=== PATIENT | male | born 1960 | race Caucasian/White ===

== ENCOUNTER 2017-10-18 15:29 | Inpatient (IN) | payer OTHER ==
[~2017-10-18] VITALS: Ht 162.6 cm; Wt 74.1 kg
--- NOTE | ~2017-10-18 | CNG ---
[facility] [place] [address] CYTO-NONGYN REPORT PROCEDURE Name: LUPEBARNEY Room #: 362-P ADM IN M.R.#: [id number] Admission: 10/18/17 Date of : 58 Discharge: Report #: [id number] Path Case #: [id number] CYTOPATHOLOGY REPORT COLLECTION DATE: 10/27/2017 RECEIVED DATE: 10/27/2017 SUBMITTING PHYS: Dr. Elicia Leonard OTHER PHYS: Dr. Nguyen Alexander CLINICAL HISTORY: CVA, LLE weakness, New onset AFIB SPECIMEN(S) RECEIVED: A.Urine * * * * * * * * * * * * FINAL DIAGNOSIS: A. Urine: NEGATIVE FOR HIGH-GRADE UROTHELIAL CARCINOMA (NHGUC). Few urothelial cells are present. Red blood cells are present. PATHOLOGIST: Maida Brunson M.D. REPORT ELECTRONICALLY SIGNED BY: Maida Brunson M.D. DATE/TIME: 10/30/2017 13:58 * * * * * * * * * * * * GROSS PATHOLOGY: A. Urine: The specimen is submitted unfixed, labeled "Barney Figueroa". Received by the Cytology Department is five mL of clear light yellow fluid. One ThinPrep slide was prepared. (mm 10.27.2017) ART GLASS SETTER(S): NAVYA Araya([facility]) INITIAL CPT CODE(S): A; 72217 Professional services performed by [facility] at [facility] [address], [place] [address] Technical services performed by [facility] at [address] [place] [address]., [address], [place] [address]. [facility] [address] [place] [address], [facility] [address] [place], [place] [address] [place] [address] [place] [address] CYTO-NONGYN REPORT PROCEDURE Name: BARNEY FIGUEROA Room #: 362-P ADM IN M.R.#: [id number] Admission: 10/18/17 Date of : 58 Discharge: Report #: [id number] Path Case #: [id number] PHONE: [phone] DIRECTOR: Abner Davis M.D. * * * END OF REPORT * * *
--- NOTE | ~2017-10-18 | HC ---
[facility] [place] [address] CONSULTATION Name: BARNEY ANDRADE Room #: 362-P ADM IN M.R.#: [id number] Admission: 10/18/17 Attend Phys: Elicia Leonard Discharge: Date of : 58 Report #: [id number] THIS REPORT FOR: //name// CC: SHARITA physician/PCP Elciia Leonard CHIEF COMPLAINT: Hematuria. HISTORY OF PRESENT ILLNESS: The patient is being seen today at the request of Dr. Leonard for evaluation and management of hematuria. The patient is a 57-year-old gentleman who is being hospitalized with a CVA. He is on Lovenox and intermittently for the last day or two, the nurses have noticed blood in his Haq. Prior to Haq catheter placement, there was no report of hematuria. He is unable to provide any meaningful history with respect to urination. ALLERGIES: None. MEDICATIONS: No chronic medications. I do refer to the medication reconciliation sheet. He is on metoprolol, spironolactone, lisinopril, furosemide, diltiazem, Lipitor, multiple vitamin, folate, Coreg, thiamine, Lovenox subq, lorazepam, Lasix, famotidine, vitamin B12, Ambien, nitroglycerin, polyethylene glycol, hydrocodone and acetaminophen. PAST SURGICAL HISTORY: Include appendectomy. SOCIAL HISTORY: He reported previously to be a weekend drinker, although he cannot answer questions now. No smoking history. REVIEW OF SYSTEMS: He has been diagnosed with atrial fibrillation and cardiomyopathy and a recent cerebral infarct. PHYSICAL EXAMINATION: GENERAL: He is comfortable sitting in bed. VITAL SIGNS: Temperature was 119/90, pulse 61, temperature 36.4 and respirations 20. ABDOMEN: Soft without mass. He has uncircumcised phallus with no acute intrascrotal pathology. Indwelling Haq catheter is draining clear urine. LABORATORY DATA: White count 9.4 thousand, hemoglobin 16.3, hematocrit 47.3 and platelets 183,000. Sodium 138, potassium 4.0, chloride 102, CO2 27, BUN 17 and creatinine 1.1. No urine studies on the chart. No abdominal imaging. IMPRESSION: Hematuria is probably classic combination of catheter-induced and in combination with anticoagulation. PLAN: We will check renal ultrasound, urine culture and cytology. Consider cytology based on above. [address] [address] CONSULTATION Name: BARNEY ANDRADE Eloise Room #: 362-P [facility] IN M.R.#: [id number] Admission: 10/18/17 Attend Phys: Elicia Leonard Discharge: Date of : 58 Report #: [id number] I appreciate the opportunity to be involved in his care. <ELECTRONICALLY SIGNED> By: Owen Alexander MD 10/27/17 0612 1745 0349 Owen Alexander MD /nt
--- NOTE | ~2017-10-18 | 2DMMODE ---
[facility] [address] [place] [address] 2 D/M-MODE ECHOCARDIOGRAM Name: LUPEBARNEY Room #: 356-P ADM IN .R.#: [id number] Admission: 10/18/17 Attend Phys: Elicia Colmenares Discharge: Date of : 58 Date of Service: 10/19/17 0917 Report #: [id number] THIS REPORT FOR: //name// APPROVED REPORT Study performed: 10/19/2017 08:01:12 EXAM: Comprehensive 2D, Doppler, and color-flow Echocardiogram Patient Location: Bedside Room #: [facility] Status: routine BSA: 1.78 HR: 85 bpm BP: 123/69 mmHg Other Information Study Quality: Adequate Indications Atrial Fibrillation 2D Dimensions RVDd: 40.88 mm LVEF(%): 21.42 (>50%) IVSd: 12.06 (7-11mm) LVOT Diam: 21.39 (18-24mm) LVDd: 50.10 mm PWd: 11.43 (7-11mm) Ascending Ao: 34.68 (22-36mm) LVDs: 45.19 (25-40mm) Aortic Root: 31.66 mm IVC: 19.00 mm Bright's LVEF: 21.42 % Volumes Left Atrial Volume (Systole) Single Plane 4CH: 95.74 mL Single Plane 2CH: 91.42 mL LA ESV Index: 56.00 mL/m2 Aortic Valve AoV Peak Christoph.: 1.01 m/s AO Peak Gr.: 4.08 mmHg LVOT Max P.16 mmHg LVOT Max V: 0.70 m/s AV Vmax: 2.48 cm2 Mitral Valve MV Decel. Time: 133.25 ms MV E Max Christoph.: 1.04 m/s [facility] [place] [address] 2 D/M-MODE ECHOCARDIOGRAM Name: LUPEBARNEY J Room #: [facility] IN ..#: [id number] Admission: 10/18/17 Attend Phys: Elicia Colmenares Discharge: Date of : 58 Date of Service: 10/19/17 0917 Report #: [id number] Pulmonary Valve PV Peak Christoph.: 0.71 m/s PV Peak Gr.: 1.99 mmHg Tricuspid Valve TR Peak Christoph.: 2.78 m/s RAP Estimate: 5.00 mmHg TR Peak Gr.: 30.97 mmHg PA Pressure: 36.00 mmHg Left Ventricle Left ventricle is at the upper limits of normal. There is normal left ventricular wall thickness. Left ventricular systolic function is severely decreased. LVEF is 25-30%. This study is not technically sufficient to allow evaluation of the LV diastolic function due to atrial fibrillation. Right Ventricle Right ventricle is dilated. Right ventricle is mildly hypokinetic. Atria Left atrium is severely dilated. Right atrium is moderately to severely dilated. Aortic Valve The aortic valve is normal in structure. Trace aortic regurgitation. There is no aortic valvular stenosis. Mitral Valve The mitral valve is normal in structure. Mild to moderate mitral regurgitation. No evidence of mitral valve stenosis. Tricuspid Valve The tricuspid valve is normal in structure. Mild tricuspid regurgitation. PAP is estimated at 36 mmHg. Pulmonic Valve Pulmonic valve is not well visualized. Great Vessels The aortic root is normal in size. IVC is normal in size and collapses >50% with inspiration. Pericardium There is no pericardial effusion. <Conclusion> [facility] [address] [place] [address] 2 D/M-MODE ECHOCARDIOGRAM Name: BARNEY ANDRADE Room #: 356-P [facility] IN .R.#: [id number] Admission: 10/18/17 Attend Phys: Elicia Colmenares Discharge: Date of : 58 Date of Service: 10/19/17916 Report #: [id number] Left ventricular systolic function is severely decreased. EF 25-30% Both atria are severely dilated. The aortic valve is normal in structure. No aortic valvular stenosis or insufficiency. Mitral valve structurallyt normal. Mild to moderate mitral regurgitation. Mild tricuspid regurgitation. Pulmonary artery pressure is estimated at 36 mmHg. There is no pericardial effusion. <ELECTRONICALLY SIGNED> By: Jarrett De La Paz MD, [facility] 10/19/17916 6 6 Jarrett De La Paz MD, [facility] /INF
--- NOTE | ~2017-10-18 | EKG ---
[address] [address] ELECTROCARDIOGRAM REPORT Name: BARNEY ANDRADE Room #: 362-P ADM IN M.R.#: [id number] Admission: 10/18/17 Attend Phys: Elicia Leonard Discharge: Date of : 58 Report #: [id number] THIS REPORT FOR: //name// [facility] Test Date: 2017-10-30 Test Time: 09:12:09 Pat Name: BARNEY ANDRADE Department: Room: 362 P Gender: M Bag Machine Helper: Isabel CRISTINA : 1960 Requested By: Harman Thomason Order Number: [id number] MD: Jarrett De La Paz Measurements Intervals [place] Rate: 86 P: [place]: QRS: -72 QRSD: 123 T: 70 QT: 363 QTc: 434 Interpretive Statements Atrial fibrillation LAFB Compared to ECG 10/22/2017 14:51:49 Left anterior fascicular block now present Electronically Signed On 10-30-2017 17:30:20 ASSOCIATE TRAINER by Jarrett De La Paz [email or web address] <ELECTRONICALLY SIGNED> By: Jarrett De La Paz MD, [facility] 10/30/17 1730 1 1 Jarrett De La Paz MD, [facility] /EPI
--- NOTE | ~2017-10-18 | CATHLAB ---
[facility] [address] [place] [address] INVASIVE PROCEDURE REPORT Name: BARNEY ANDRADE Room #: 362-P [facility] IN ..#: [id number] Admission: 10/18/17 Attend Phys: Elicia Colmenares Discharge: Date of : 58 Date of Service: 10/26/17 1721 Report #: [id number] THIS REPORT FOR: //name// APPROVED REPORT Procedure Narrative The patient was brought urgently to the Cardiac Catheterization Laboratory and was prepped and draped in a sterile manner. The Right Groin^ was infiltrated with subcutaneous anesthesia. A PINNACLE 6FR Sheath #[id number] sheath was inserted into the RFA^. Coronary angiography was performed using coronary diagnostic catheters. The right coronary system was accessed and visualized with a JR 4 catheter. The left coronary system was accessed and visualized with a JL 5 catheter. The left ventricle was accessed and visualized with a Pigtail catheter. Left ventriculogram was performed in CHAPARRO projection. Closure device was deployed with a 6 Fr Mynx. The patient tolerated the procedure well and there were no complications associated with the procedure. There was no hematoma. Fluoro Time: 6.07 minutes Dose: 810 mGy Contrast Type and Amount: Omnipaque 120 ml Hemodynamics The right atrial mean pressure is 13 mmHg. The right ventricular pressure is 40/9 mmHg. The pulmonary artery pressure is 45/15 mmHg with a mean of 27 mmHg. The mean pulmonary capillary wedge pressure is 19 mmHg. The left ventricular pressure is 110/8 mmHg with a mean of mmHg. The left ventricular end diastolic pressure is 21 mmHg. The cardiac output using thermo method is 3.25 L/min. The cardiac index using thermo method is 1.83 L/min/m2. Conclusion #1 mildly dilated left ventricle with severe global hypokinesis EF 20% range #2 grossly normal coronary arteries and a left dominant system. No occlusive disease. #3 bilateral single renal arteries selectively injected mildly diseased #4'right heart catheterization with moderate elevation pulmonary pressures see above hemodynamics Recommendations and plan or aggressive risk factor modification aggressive diuresis. Etiology of cardiomyopathy is unknown idiopathic [facility] [address] [place] [address] INVASIVE PROCEDURE REPORT Name: BARNEY ANDRADE Room #: 362-P [facility] IN ..#: [id number] Admission: 10/18/17 Attend Phys: Elicia Colmenares Discharge: Date of : 58 Date of Service: 10/26/17 1721 Report #: [id number] versus alcohol. Transfer back to telemetry unit in guarded but stable condition. <ELECTRONICALLY SIGNED> By: Billy Arenas MD, [facility] 10/26/171720 20 1721 Billy Arenas MD, [facility] /INF
--- NOTE | ~2017-10-18 | EEG ---
[facility] [address] [place] [address] ELECTROENCEPHALOGRAM Name: BARNEY ANDRADE Room #: 362-P [facility] IN M.R.#: [id number] Admission: 10/18/17 Attend Phys: Elicia Richard Discharge: 11/01/17 Date of : 58 Report #: [id number] THIS REPORT FOR: //name// CC: SHARITA physician/PCP Elicia Leonard DATE OF SERVICE: 10/24/2017 INDICATION FOR PROCEDURE: This patient is being evaluated for altered mental status. INTERPRETATION: EEG was done by placing the electrodes by standard 10-20 system of electrode placement. Both referential and sequential montages were used for recording. Background activity on the left side is about 10 Hz and 30 microvolt, on the right side is lower amplitude. The patient appeared to be drowsy during part of this EEG and that is associated with bilateral slowing and vertex sharp waves. Photic stimulation is unremarkable. Throughout the record, no active epileptiform activity was noted. IMPRESSION: This patient's electroencephalogram demonstrates that the amplitude is somewhat lower on the right side as compared to the left side. For that clinical correlation is recommended. Otherwise, the study was mostly unremarkable. Thank you very much for this referral. <ELECTRONICALLY SIGNED> By: Robbie Hernandez MD 11/02/17 1146 1955 36 Robbie Hernandez MD /nt
--- NOTE | ~2017-10-18 | EKG ---
[address] [place] [address] ELECTROCARDIOGRAM REPORT Name: BARNEY ANDRADE Room #: 356-P ADM IN M.R.#: [id number] Admission: 10/18/17 Attend Phys: Elicia Leonard Discharge: Date of : 58 Report #: [id number] THIS REPORT FOR: //name// [facility] Test Date: 2017-10-22 Test Time: 14:51:49 Pat Name: BARNEY ANDRADE Department: Room: 356 P Gender: M Fuse Spooler: sakina : 1960 Requested By: Billy Arenas Order Number: [id number] MD: Jarrett De La Paz Measurements Intervals [place] Rate: 43 P: [place]: QRS: -86 QRSD: 119 T: 196 QT: 454 QTc: 384 Interpretive Statements Atrial fibrillation with a slow ventricular response Leftward axis Nonspecific intraventricular conduction delay T-wave abnormality, consider lateral ischemia Compared to ECG 10/19/2017 13:29:[address] and T wave abnormality is more pronounced Electronically Signed On 10-23-2017 7:40:11 SUPPLY CHAIN LOGISTICS MANAGER by Jarrett De La Paz [email or web address] <ELECTRONICALLY SIGNED> By: Jarrett De La Paz MD, [facility] 10/23/17 0740 1451 1451 Jarrett De La Paz MD, [facility] /EPI
--- NOTE | ~2017-10-18 | HC ---
[facility] [place] [address] [place] [address] CONSULTATION Name: BARNEY ANDRADE Room #: 356-P ADM IN M.R.#: [id number] Admission: 10/18/17 Attend Phys: Elicia Leonard Discharge: Date of : 58 Report #: [id number] THIS REPORT FOR: //name// CC: SHARITA physician/PCP Elicia Leonard DATE OF SERVICE: 10/19/2017 HISTORY OF PRESENT ILLNESS: This is a 57-year-old male patient who was seen by me last night and this morning. This is a combined note. This patient was admitted with nonspecific symptoms. History is difficult to get because of the language barrier but the best I can tell, this patient has symptoms on the left side. He indicates that he has trouble walking. He indicated there is predominantly because of the left-sided symptoms, although he is having some symptom in generalized fashion. He came to Emergency Room and that demonstrated the patient had a CT scan of the head. REVIEW OF SYSTEMS: Indicate that this patient is having problem with the right eye and to some extent left eye. He indicates that he has not sought any medical treatment because he cannot afford it. His CT scan is abnormal. On admission, he was found to have atrial fibrillation. He also has elevated blood sugar. This was his relevant 14-point review of system. PAST MEDICAL HISTORY: Negative for any stroke. FAMILY HISTORY: Positive for stroke. SOCIAL HISTORY: He does drink alcohol. PHYSICAL EXAMINATION: NEUROLOGICAL: The patient's examination is difficult. He is alert. He is responsive. He can follow simple command. Cognition is difficult because of the patient's language barrier. Cranial nerve examination 2 through 12 was attempted. He has pretty redness in both eyes. He says he can see with both eyes. I cannot do any further good examination. He moves all 4 extremities. He may be weak, some on the left side but difficult to tell, but he has pretty significant difficulty with ambulation. He cannot tell me the position sense is intact and his tone looks symmetrical. There is no carotid bruit. There is no meningeal sign. CARDIAC: Irregular heart but that has been found to be atrial fibrillation. RESPIRATORY: Examination does not show any respiratory difficulty. RADIOLOGICAL DATA: This patient had a CT and subsequently had an MRI that both confirmed that the patient had what looks like a large stroke. Echocardiogram demonstrates decreased ejection fraction. [address] [address] CONSULTATION Name: LUPEBARNEY J Room #: 356-P ADM IN M.R.#: [id number] Admission: 10/18/17 Attend Phys: Elicia Leonard Discharge: Date of : 58 Report #: [id number] IMPRESSION: 1. Large stroke secondary to cardiac embolization. 2. Significant lower ejection fraction and history of atrial fibrillation. 3. Ophthalmology problem, which is most likely secondary to ophthalmology cause. RECOMMENDATIONS: 1. We will do more workup including the carotid and MRA workup. 2. This patient was never an intervention candidate. 3. He had a left-sided stroke with left-sided symptom. That is very unusual. Corticospinal tracts very rarely do not cross, but that is the rare finding, but we have to assume that probably that happened in his case, but I will exclude any spine pathology also in that regard. 4. Rehabilitation consult with PT, OT. 5. This patient will need a repeat CT scan over the weekend and depending upon that and depending upon any hemorrhage there, the question of timing of anticoagulation need to be addressed in this patient. Cardiology is going to see this patient and will determine if there is any need to do ALICE to exclude any possibility of endocarditis. I need to check with Radiology to see whether the contrast was given during MRI or not or whether there is any need to do it, but this patient will need a repeat CT scan in the next 2-3 days to determine whether we can start the anticoagulations on third day after this stroke or whether we need to wait for a week or even longer to prevent the stroke from becoming hemorrhagic. Thank you very much for this referral and I will ask Dr. Sanchez to follow up this patient with you until Monday. More than 50 minutes of time was spent taking care of this patient today and yesterday and more than 50% of the time was spent counseling this patient and coordinating his care. Thank you very much for this referral. <ELECTRONICALLY SIGNED> By: Robbie Hernandez MD 10/20/17 1041 1549 0033 Robbie Hernandez MD /nt
--- NOTE | ~2017-10-18 | EKG ---
[address] [place] [address] ELECTROCARDIOGRAM REPORT Name: BARNEY ANDRADE Room #: 356-P ADM IN M.R.#: [id number] Admission: 10/18/17 Attend Phys: Elicia Leonard Discharge: Date of : 58 Report #: [id number] THIS REPORT FOR: //name// [facility] ED Test Date: 2017-10-18 Test Time: 15:37:30 Pat Name: BARNEY ANDRADE Department: Room: 356 Gender: M Community Relations Advisor: ISRAEL : 1960 Requested By: Nguyen Villa Order Number: [id number] MD: Jarrett De La Paz Measurements Intervals [place] Rate: 102 P: [place]: QRS: -79 QRSD: 121 T: 59 QT: 328 QTc: 428 Interpretive Statements Atrial fibrillation Leftward axis Nonspecific intraventricular conduction delay repolarization abnormality No previous ECG available for comparison Electronically Signed On 10-18-2017 17:23:10 SPEEDER OPERATOR by Jarrett De La Paz [email or web address] <ELECTRONICALLY SIGNED> By: Jarrett De La Paz MD, [facility] 10/18/17 1723 1537 1537 Jarrett De La Paz MD, [facility] /EPI
--- NOTE | ~2017-10-18 | EKG ---
[address] [address] ELECTROCARDIOGRAM REPORT Name: BARNEY ANDRADE Room #: 356-P ADM IN M.R.#: [id number] Admission: 10/18/17 Attend Phys: Elicia Leonard Discharge: Date of : 58 Report #: [id number] THIS REPORT FOR: //name// [facility] Test Date: 2017-10-19 Test Time: 13:29:39 Pat Name: BARNEY ANDRADE Department: Room: 356 P Gender: M Decontamination Worker: Isabel CRISTINA : 1960 Requested By: Sirisha Landa Order Number: [id number] MD: Jarrett De La Paz Measurements Intervals [place] Rate: 82 P: [place]: QRS: -87 QRSD: 121 T: 37 QT: 386 QTc: 451 Interpretive Statements Atrial fibrillation Leftward axis Nonspecific intraventricular conduction delay Compared to ECG 10/18/2017 15:37:30 No significant change was found Electronically Signed On 10-19-2017 17:02:53 OPERATOR LIGHTS by Jarrett De La Paz [email or web address] <ELECTRONICALLY SIGNED> By: Jarrett De La Paz MD, [facility] 10/19/17 1702 1329 132 Jarrett De La Paz MD, [facility] /EPI
--- NOTE | ~2017-10-18 | HC ---
[facility] [place] [address] CONSULTATION Name: BARNEY ANDRADE Room #: 362-P ADM IN M.R.#: [id number] Admission: 10/18/17 Attend Phys: Elicia Leonard Discharge: Date of : 58 Report #: [id number] THIS REPORT FOR: //name// CC: SHARITA physician/PCP Elicia Leonard DATE OF SERVICE: 10/19/2017 HISTORY OF PRESENT ILLNESS: The patient is a 57-year-old male admitted with left-sided weakness and inability to ambulate. He was noted to have an acute recent infarct mid left temporal lobe on MRI. He is being monitored regarding atrial fibrillation. He feels that his weakness is improving since he came into the hospital. He was unable to walk and complained of weakness in his legs. Denied any visual changes other than his typical cataracts. No swallowing difficulties. We are seeing him in rehabilitation medicine consultation. PAST MEDICAL HISTORY: Includes prior appendix surgery. MEDICATIONS: Please see the full medication listing. HABITS: Nonsmoker. Alcohol use on the weekends. FAMILY HISTORY: Mother had a CVA. ALLERGIES: No known drug allergies. SOCIAL HISTORY: Lives in a trailer house alone, 3 steps in, did not utilize gait aids, works in construction, [employer] and [employer] He notes that he has a friend that he could stay in the friend's apartment on one floor. The friend works during the day. REVIEW OF SYSTEMS: Did not offer any current complaints of chest pain, shortness of breath or abdominal discomfort. PHYSICAL EXAMINATION: GENERAL: A 57-year-old male in no obvious distress. He has broken Palestinian, but seems to be able to follow basic commands without difficulty. VITAL SIGNS: Temperature 98.2, pulse 83, respirations 18, blood pressure 117/84. He has some chronic corneal changes and notes a history of cataracts. EOMs otherwise appeared full. Facies, he may have a slight depressed left nasolabial fold. EXTREMITIES: He has functional range of motion of both upper and lower extremities. I would grade his strength, probably a grade 4/5 both upper and lower extremities. DTRs were 1. Had some difficulty assessing sensation with the language barrier. Coordination was reasonably intact. Functionally, he was noted to have some lean to the left while sitting and was actually max assist [facility] [address] [place] [address] CONSULTATION Name: BARNEY ANDRADE Room #: 362-P [facility] IN M.R.#: [id number] Admission: 10/18/17 Attend Phys: Elicia Leonard Discharge: Date of : 58 Report #: [id number] with sit to stand. He can only take two steps max assist. ASSESSMENT: A 57-year-old right-handed male with the following problem list: 1. Acute recent infarct left medial temporal lobe. 2. Gait instability with inability to ambulate. 3. Decreased coordination and balance. 4. Functional mobility and ADL deficits. I am uncertain if he has the skin cognition or speech deficits. He could communicate his basic wants that needs me. 5. History of atrial fibrillation. PLAN: Therapy evaluations are underway. We will be glad to follow regarding his rehab therapy needs as he further medically stabilizes. <ELECTRONICALLY SIGNED> By: Owen Carrillo MD 10/24/17 1553 [id number] 1839 Owen Carrillo MD /PMT
[2017-10-18 15:32] VITALS: BP 144/103
[2017-10-18 16:02] LABS: ABSOLUTE NEUTROPHILS 6.3 thou/uL (1.4-8.2); BASOPHILS 1.1 % (0.0-2.0); EOSINOPHILS 0.6 % (0.0-3.0); HEMATOCRIT 46.1 % (42.0-52.0); HEMOGLOBIN 15.4 gm/dL (14.0-18.0); LYMPHOCYTES 17.4 % (24.0-44.0); MCH 30.4 pg (26.0-34.0); MCHC 33.5 g/dL (28.0-37.0); MCV 90.8 fL (80.0-100.0); MONOCYTES 7.1 % (1.0-8.0); PLATELET COUNT 159 thou/uL (150-400); POLYS 73.8 % (36.0-66.0); RBC 5.08 mil/uL (4.50-6.00); RDW 14.6 % (10.5-14.5); WBC 8.6 thou/uL (4.0-11.0)
[2017-10-18 16:27] LABS: ANION GAP 9 mmol/L (7-16); BUN 24 mg/dL (7-18); CHLORIDE 102 mmol/L (98-107); CO2 28 mmol/L (21-32); GLUCOSE 163 mg/dL (74-106); POTASSIUM 3.9 mmol/L (3.5-5.1); SODIUM 139 mmol/L (136-145)
[2017-10-18 16:38] LABS: TROPONIN-I < 0.04 ng/mL (<0.06)
[2017-10-18 16:58] LABS: LARGE PLATELETS FEW; PLATELET ESTIMATE NORMAL
[2017-10-18 17:40] LABS: CHOLESTEROL 192 mg/dL (<200); HDL CHOLESTEROL 71 mg/dL (>40); LDL CHOLESTEROL 91 mg/dL (<100); TC:HDL 2.7 Ratio (Not establshd); TRIGLYCERIDE 150 mg/dL (<150); VLDL 30 mg/dL (<40)
[2017-10-18 17:42] LABS: SERUM ASSESSMENT Clear
[2017-10-18 17:46] VITALS: BP 143/98
[2017-10-18 18:20] VITALS: BP 135/72
[2017-10-18 20:50] VITALS: BP 121/87
[2017-10-19 00:22] VITALS: BP 119/72
[2017-10-19 04:30] VITALS: BP 123/69
[2017-10-19 08:30] VITALS: BP 117/84
[2017-10-19 09:08] LABS: HIV ANTIBODY Non Reactive (Non Reactive)
[2017-10-19 13:17] VITALS: BP 120/72
[2017-10-19 19:20] VITALS: BP 127/82
[2017-10-19 19:50] VITALS: BP 127/82
[2017-10-20 04:43] VITALS: BP 102/71
[2017-10-20 07:41] VITALS: BP 124/89
[2017-10-20 12:39] VITALS: BP 127/88
[2017-10-20 15:25] VITALS: BP 110/77
[2017-10-20 20:00] VITALS: BP 105/70
[2017-10-21 04:00] VITALS: BP 115/80
[2017-10-21 07:45] VITALS: BP 104/75
[2017-10-21 09:07] LABS: CREATININE 1.2 mg/dL (0.7-1.3); POTASSIUM 4.5 mmol/L (3.5-5.1)
[2017-10-21 11:21] VITALS: BP 95/68
[2017-10-21 15:24] VITALS: BP 96/59
[2017-10-21 20:40] VITALS: BP 99/80
[2017-10-22 03:40] VITALS: BP 104/82
[2017-10-22 08:58] VITALS: BP 112/66
[2017-10-22 11:00] VITALS: BP 96/59
[2017-10-22 17:18] VITALS: BP 106/63
[2017-10-22 19:06] VITALS: BP 107/68
[2017-10-23] MEDS ORDERED: CELEXA40 MG PO (03:23)
[2017-10-23 03:48] VITALS: BP 102/77
[2017-10-23 06:20] LABS: ABSOLUTE NEUTROPHILS 5.3 thou/uL (1.4-8.2); BASOPHILS 1.8 % (0.0-2.0); EOSINOPHILS 1.5 % (0.0-3.0); HEMATOCRIT 50.3 % (42.0-52.0); HEMOGLOBIN 16.8 gm/dL (14.0-18.0); LYMPHOCYTES 25.3 % (24.0-44.0); MCH 30.9 pg (26.0-34.0); MCHC 33.4 g/dL (28.0-37.0); MCV 92.5 fL (80.0-100.0); MONOCYTES 8.9 % (1.0-8.0); PLATELET COUNT 169 thou/uL (150-400); POLYS 62.5 % (36.0-66.0); RBC 5.44 mil/uL (4.50-6.00); RDW 14.4 % (10.5-14.5); WBC 8.5 thou/uL (4.0-11.0)
[2017-10-23 06:25] LABS: CREATININE 1.1 mg/dL (0.7-1.3); MAGNESIUM 2.3 mg/dL (1.8-2.4); POTASSIUM 4.6 mmol/L (3.5-5.1)
[2017-10-23 09:15] VITALS: BP 128/92
[2017-10-23 14:05] VITALS: BP 135/90
[2017-10-23 16:00] VITALS: BP 137/89
[2017-10-23 20:45] LABS: BE(vivo) 1.4 mmol/L (-2 to +3); HCO3 25.8 mmol/L (22.0-26.0); PCO2 40.2 mmHg (35.0-45.0); PO2 83.8 mmHg (80.0-100.0); pH 7.426 (7.360-7.450); sO2 96.5 % (92.0-98.0)
[2017-10-23 20:54] LABS: HEMATOCRIT 47.9 % (42.0-52.0); HEMOGLOBIN 16.2 gm/dL (14.0-18.0); MCH 30.5 pg (26.0-34.0); MCHC 33.8 g/dL (28.0-37.0); MCV 90.1 fL (80.0-100.0); RBC 5.32 mil/uL (4.50-6.00); RDW 14.3 % (10.5-14.5); WBC 11.1 thou/uL (4.0-11.0)
[2017-10-23 20:55] VITALS: BP 140/105
[2017-10-23 21:02] LABS: CALCIUM 8.9 mg/dL (8.5-10.1); CREATININE 1.1 mg/dL (0.7-1.3); POTASSIUM 4.6 mmol/L (3.5-5.1)
[2017-10-23 22:52] LABS: AMP/METHAMP Negative (Negative); BARBITURATES Negative (Negative); BENZODIAZEPINES Negative (Negative); COCAINE Negative (Negative); METHADONE Negative (Negative); OPIATES Negative (Negative); PCP Negative (Negative)
[2017-10-24 04:44] LABS: ABSOLUTE NEUTROPHILS 8.5 thou/uL (1.4-8.2); BASOPHILS 0.8 % (0.0-2.0); EOSINOPHILS 0.3 % (0.0-3.0); HEMATOCRIT 45.6 % (42.0-52.0); HEMOGLOBIN 15.4 gm/dL (14.0-18.0); LYMPHOCYTES 11.7 % (24.0-44.0); MCH 30.4 pg (26.0-34.0); MCHC 33.9 g/dL (28.0-37.0); MCV 89.9 fL (80.0-100.0); MONOCYTES 7.9 % (1.0-8.0); PLATELET COUNT 169 thou/uL (150-400); POLYS 79.3 % (36.0-66.0); RBC 5.07 mil/uL (4.50-6.00); RDW 14.1 % (10.5-14.5); WBC 10.7 thou/uL (4.0-11.0)
[2017-10-24 04:51] LABS: CALCIUM 8.9 mg/dL (8.5-10.1); MAGNESIUM 2.1 mg/dL (1.8-2.4); PHOSPHORUS 3.9 mg/dL (2.5-4.9); POTASSIUM 4.1 mmol/L (3.5-5.1)
[2017-10-24 05:25] VITALS: BP 129/82
[2017-10-24 07:56] VITALS: BP 143/85
[2017-10-24 12:05] VITALS: BP 105/67
[2017-10-24 15:53] VITALS: BP 95/41
[2017-10-24 20:00] VITALS: BP 113/66
[2017-10-25 04:00] VITALS: BP 117/77
[2017-10-25 11:13] VITALS: BP 91/59
[2017-10-25 15:58] VITALS: BP 103/74
[2017-10-25 19:12] VITALS: BP 112/56
[2017-10-26 04:16] VITALS: BP 115/81
[2017-10-26 05:27] LABS: HEMATOCRIT 47.3 % (42.0-52.0); HEMOGLOBIN 16.3 gm/dL (14.0-18.0); MCH 30.8 pg (26.0-34.0); MCHC 34.5 g/dL (28.0-37.0); MCV 89.5 fL (80.0-100.0); PLATELET COUNT 183 thou/uL (150-400); RBC 5.29 mil/uL (4.50-6.00); RDW 14.1 % (10.5-14.5); WBC 9.4 thou/uL (4.0-11.0)
[2017-10-26 05:47] LABS: CALCIUM 8.9 mg/dL (8.5-10.1); CREATININE 1.1 mg/dL (0.7-1.3)
[2017-10-26 08:28] LABS: ABSOLUTE NEUTROPHILS 6.3 thou/uL (1.4-8.2); PLATELET ESTIMATE NORMAL
[2017-10-26 08:53] VITALS: BP 133/74
[2017-10-26 16:59] VITALS: BP 119/90
[2017-10-26 19:40] VITALS: BP 108/71
[2017-10-27 03:32] LABS: HEMATOCRIT 49.2 % (42.0-52.0); HEMOGLOBIN 16.8 gm/dL (14.0-18.0); MCH 30.7 pg (26.0-34.0); MCHC 34.2 g/dL (28.0-37.0); MCV 89.6 fL (80.0-100.0); PLATELET COUNT 177 thou/uL (150-400); RBC 5.49 mil/uL (4.50-6.00); RDW 14.3 % (10.5-14.5); WBC 8.7 thou/uL (4.0-11.0)
[2017-10-27 03:38] LABS: POTASSIUM 3.8 mmol/L (3.5-5.1)
[2017-10-27 04:55] VITALS: BP 116/80
[2017-10-27 04:55] LABS: ABSOLUTE NEUTROPHILS 4.9 thou/uL (1.4-8.2); ATYPICAL LYMPHS 11 %; ATYPICAL MONONUCLEARS 2 %; LARGE PLATELETS OCCASIONAL
[2017-10-27 06:00] VITALS: BP 103/72
[2017-10-27 11:50] LABS: URINE BILIRUBIN NEGATIVE (Negative); URINE BLOOD 3+ (Negative); URINE CLARITY CLEAR; URINE COLOR COLORLESS; URINE GLUCOSE-RANDOM* NEGATIVE (Negative); URINE KETONES NEGATIVE (Negative); URINE LEUKOCYTES-REFLEX NEGATIVE (Negative); URINE NITRITE-REFLEX NEGATIVE (Negative); URINE PROTEIN (DIPSTICK) NEGATIVE (Negative); URINE UROBILINOGEN 0.2 E.U./dl (0.2-1.0)
[2017-10-27 11:59] LABS: CASTS None Seen /LPF (None Seen); SQUAMOUS 0-3 Few /LPF (0-3)
[2017-10-27 12:00] LABS: BACTERIA-REFLEX None Seen /HPF (None Seen); CRYSTALS None Seen /LPF (None Seen); URINE RBC 3-10 Few /HPF (0-2); URINE WBC-REFLEX 0-5 Rare /HPF (0-5)
[2017-10-27 16:14] VITALS: BP 124/82
[2017-10-27 19:50] VITALS: BP 125/95
[2017-10-28 03:55] VITALS: BP 119/84
[2017-10-28 05:29] LABS: ABSOLUTE NEUTROPHILS 6.3 thou/uL (1.4-8.2); EOSINOPHILS 1.2 % (0.0-3.0); HEMATOCRIT 48.7 % (42.0-52.0); HEMOGLOBIN 16.7 gm/dL (14.0-18.0); LYMPHOCYTES 17.5 % (24.0-44.0); MCH 30.8 pg (26.0-34.0); MCHC 34.4 g/dL (28.0-37.0); MCV 89.6 fL (80.0-100.0); MONOCYTES 10.8 % (1.0-8.0); PLATELET COUNT 186 thou/uL (150-400); POLYS 67.5 % (36.0-66.0); RBC 5.43 mil/uL (4.50-6.00); RDW 13.9 % (10.5-14.5); WBC 9.3 thou/uL (4.0-11.0)
[2017-10-28 05:43] LABS: CALCIUM 9.2 mg/dL (8.5-10.1); CREATININE 1.1 mg/dL (0.7-1.3); POTASSIUM 4.1 mmol/L (3.5-5.1)
[2017-10-28 07:58] VITALS: BP 118/74
[2017-10-28 11:08] VITALS: BP 113/74
[2017-10-28 15:09] VITALS: BP 141/111
[2017-10-28 19:15] VITALS: BP 106/81
[2017-10-29 03:20] VITALS: BP 122/67
[2017-10-29 03:44] LABS: HEMATOCRIT 48.2 % (42.0-52.0); HEMOGLOBIN 16.5 gm/dL (14.0-18.0); MCH 30.7 pg (26.0-34.0); MCHC 34.2 g/dL (28.0-37.0); MCV 89.7 fL (80.0-100.0); RBC 5.37 mil/uL (4.50-6.00); RDW 13.8 % (10.5-14.5)
[2017-10-29 04:04] LABS: ALBUMIN 3.1 g/dL (3.4-5.0); CALCIUM 8.9 mg/dL (8.5-10.1); CREATININE 1.1 mg/dL (0.7-1.3); POTASSIUM 3.8 mmol/L (3.5-5.1); TOTAL BILIRUBIN 1.2 mg/dL (<0.1-1.0); TOTAL PROTEIN 6.8 g/dL (6.4-8.2)
[2017-10-29 20:00] VITALS: BP 113/79
[2017-10-30 04:38] VITALS: BP 144/77
[2017-10-30 04:40] LABS: HEMATOCRIT 47.9 % (42.0-52.0); HEMOGLOBIN 16.6 gm/dL (14.0-18.0); MCH 30.7 pg (26.0-34.0); MCHC 34.7 g/dL (28.0-37.0); MCV 88.5 fL (80.0-100.0); RBC 5.41 mil/uL (4.50-6.00); RDW 13.7 % (10.5-14.5); WBC 8.6 thou/uL (4.0-11.0)
[2017-10-30 05:15] LABS: CALCIUM 8.7 mg/dL (8.5-10.1); POTASSIUM 3.6 mmol/L (3.5-5.1); TOTAL BILIRUBIN 1.2 mg/dL (<0.1-1.0); TOTAL PROTEIN 6.9 g/dL (6.4-8.2)
[2017-10-30 08:51] VITALS: BP 145/72
[2017-10-30 19:15] VITALS: BP 132/64
[2017-10-31 04:45] VITALS: BP 12/84
[2017-10-31 08:15] VITALS: BP 123/71
[2017-10-31 16:38] VITALS: BP 95/58
[2017-10-31 19:25] VITALS: BP 113/59
[2017-11-01 04:30] VITALS: BP 105/74
[2017-11-01 07:22] VITALS: BP 89/72
[2017-11-01 10:21] VITALS: BP 89/72
[2017-11-01] MEDS ORDERED: PRADAXA150 MG PO (10:55)
[2017-11-01] MEDS ORDERED: HYDROCODON-ACE1 EAC7 PO (10:55)
[2017-11-01] MEDS ORDERED: B-12500 MCG PO (10:55)
[2017-11-01] MEDS ORDERED: PANTOPRAZOLE SO40 M1 PO (10:55)
[2017-11-01] MEDS ORDERED: ALDACTONE25 MG PO (10:55)
[2017-11-01] MEDS ORDERED: AMBIEN 5 MG TABL5 M1 PO (10:55)
[2017-11-01] MEDS ORDERED: NITROGLYCERIN0.4 MG SUBLING (10:55)
[2017-11-01] MEDS ORDERED: CARDIZEM CD120 MG PO (10:55)
[2017-11-01] MEDS ORDERED: VITAMIN B-1100 M2 PO (10:55)
[2017-11-01] MEDS ORDERED: LIPITOR 20 MG T20 M1 PO (10:55)
[2017-11-01] MEDS ORDERED: LOPRESSOR25 PER TUBE (10:55)
== END 2017-11-01 15:23 | DRG 65 ==
LOC: ER 15:29 → EROBS 16:56 → 3W 16:56
PROVIDERS: Emergency Medicine; Hospitalist; Internal Medicine Cardiovascular Disease; Internal Medicine Endocrinology, Diabetes & Metabolism; Nurse Practitioner; Nurse Practitioner Acute Care; Psychiatry & Neurology Neurology; Specialist
DX: I63.9 Cerebral infarction, unspecified (principal); F10.239 Alcohol dependence with withdrawal, unspecified; I50.20 Unspecified systolic (congestive) heart failure; I48.91 Unspecified atrial fibrillation; R26.9 Unspecified abnormalities of gait and mobility; R31.9 Hematuria, unspecified; I25.5 Ischemic cardiomyopathy; Y90.9 Presence of alcohol in blood, level not specified; F13.10 Sedative, hypnotic or anxiolytic abuse, uncomplicated; Z82.49 Family history of ischemic heart disease and other diseases of the circulatory system; Z82.3 Family history of stroke; Z90.89 Acquired absence of other organs; Z28.21 Immunization not carried out because of patient refusal
CPT/HCPCS: 10779; 10879

== ENCOUNTER 2017-11-01 12:08 | Inpatient (IN) | payer OTHER ==
[~2017-11-01] VITALS: Ht 162.6 cm; Wt 93.6 kg
--- NOTE | ~2017-11-01 | PLAN ---
[facility] [place] [address] REHAB UNIT PLAN OF CARE Name: BARNEY ANDRADE Room #: 504-1 DIS IN M.R.#: [id number] Admission: 11/01/17 Attend Phys: Owen Carrillo MD Discharge: 12/01/17 Date of : 58 Report #: [id number] THIS REPORT FOR: //name// CC: Owen Carrillo [facility] physician/PCP DATE OF SERVICE: 11/03/2017 HISTORY OF PRESENT ILLNESS: The patient seen back today in followup. He is in no distress. Last recorded temperature is 98, pulse 50, respirations 19, blood pressure 122/75. He was in no distress. No focal calf swelling. Transfers have been mod assist, bed to chair. Gait 8 feet, paralumbar is mod assist. In occupational therapy, lower body dressing is dependent. In speech therapy, he has moderate comprehensive deficits. Pureed with honey thickened liquid diet. ASSESSMENT: 1. Acute infarct left medial temporal lobe. 2. Extensive acute right hemispheric cortical infarcts, right temporal lobe, right frontal lobe. 3. Acute upper extremity plegia with left lower extremity paresis and some hemineglect. 4. Dysphagia, on pureed with honey thickened liquids. We will be adding vital stem as discussed with speech therapy. 5. Atrial fibrillation. 6. New congestive heart failure with cardiology involved. 7. Severe ETOH withdrawal shortly after admission, which resolved. 8. Hematuria, resolved. Urology is recommending outpatient followup as noted. PLAN: The overall plan of care is based on the preadmission screen, post-admission evaluation and information garnered from therapies. 1. Estimated length of stay is probably fairly long as he has had a lower level. 2. Medical prognosis is reasonably good. 3. Anticipated interventions includes the interdisciplinary acute inpatient rehabilitation program. 4. Anticipated functional outcomes would be for him to hopefully initially be independent at the wheelchair level and then progress from there. We will need to see how he does. 5. Discharge destination would be back to the home setting if at all possible. 6. Expected therapy by discipline includes PT, OT and speech 1 hour per day each five days a week throughout the duration of the acute inpatient rehabilitation stay. <ELECTRONICALLY SIGNED> By: Owen Carrillo MD 12/05/17 1030 [id number] 1849 Owen Carrillo MD /nt
--- NOTE | ~2017-11-01 | HC ---
[facility] [place] [address] CONSULTATION Name: BARNEY ANDRADE Room #: 504-1 ADM IN M.R.#: [id number] Admission: 11/01/17 Attend Phys: Owen Carrillo MD Discharge: Date of : 58 Report #: [id number] THIS REPORT FOR: //name// CC: Owen Carrillo [facility] physician/PCP DATE OF SERVICE: 11/07/2017 NEUROBEHAVIORAL STATUS EXAM: ATTENDING PHYSICIAN: Owen Carrillo MD. PIPE STRESS ENGINEER: Saravanan Cope, PhD. CLINICAL PRESENTATION: The patient is a 57-year-old male admitted to the rehabilitation unit for comprehensive inpatient rehabilitation program to assist in functional mobility, activities of daily living and self-care and mental status secondary to an acute recent infarction of the middle left temporal lobe. The patient carries diagnoses of atrial fibrillation, greater weakness in his left. MRI revealed a right-sided CVA. The patient's primary language is Bel[place]an. Previous diagnoses include acute infarct left medial temporal lobe, extensive acute right hemispheric cortical infarcts in the medial and right temporal lobe, right frontal lobe, medial high right frontal lobes and a suspected acute lacunar infarct in the right basal ganglia. Left upper extremity plegia with left lower extremity paresis and hemineglect are noted. Atrial fibrillation, congestive heart failure, severe alcohol withdrawal after admission report as resolved. Hematuria, which is resolved. A complete description of his medical condition and history can be found in his medical record. Neuropsychological consultation was requested to provide assistance in the assessment of cognitive and emotional status and to provide recommendations and services. he patient has a 6th grade education. He did not attend high school. 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 TECHNIQUES UTILIZED: Clinical interview, review of medical records, staff consultation and behavioral observation, mini mental status exam 2 standard version. EXAMINATION FINDINGS: The patient was alert during the assessment. He was 3/3 for initial registration, 3/5 for orientation to time, 4/[address] and 0/3 for immediate recall of 3 items after a brief time delay and distraction. The patient was 2/2 for naming. He was 1/3 for auditory comprehension. He could read and follow single command. The patient was unable to copy a simple geometric design and unable to draw a clock. He has a severe [facility] [address] [place] [address] CONSULTATION Name: BARNEY ANDRADE Room #: 504-1 ADM IN ..#: [id number] Admission: 11/01/17 Attend Phys: Owen Carrillo MD Discharge: Date of : 58 Report #: [id number] upper extremity tremor and visual spatial disorganization. DIAGNOSTIC IMPRESSION: Major neurocognitive disorder due to vascular disease -- decreased insight and impulsivity -- extent to be determined, likely in the moderate range. RECOMMENDATIONS: The patient will require 24-hour care to provide assistance in the management of medication and nutrition along with financial decision making. He will likely show improvement in function as a result of his recovery from the stroke. However, initial supervision will be necessary to maintain safety. The use of a translator/interpreter as well as having instructions and directions written in Belizean may also be of benefit to help provide instruction and direction during his recovery. Thank you very much for allowing me to provide the consultation on this patient. <ELECTRONICALLY SIGNED> By: Saravanan Cope, PhD 11/11/17 1415 1755 2214 Saravanan Cope, PhD /nt
--- NOTE | ~2017-11-01 | H ---
[facility] [place] [address] HISTORY AND PHYSICAL Name: BARNEY ANDRADE Room #: 514-P ADM IN M.R.#: [id number] Admission: 11/01/17 Attend Phys: Owen Carrillo MD Discharge: Date of : 58 Report #: [id number] THIS REPORT FOR: //name// CC: Owen Carrillo [facility] physician/PCP DATE OF SERVICE: 11/02/2017 HISTORY AND PHYSICAL/POST-ADMISSION PHYSICIAN EVALUATION HISTORY OF PRESENT ILLNESS: The patient is a 57-year-old male who was admitted with left-sided weakness and inability to ambulate on 10/19/2017. He was noted to have an acute recent infarct mid left temporal lobe on MRI. He was monitored regarding atrial fibrillation. He was noted to develop more weakness in left hemiplegia. An MRI on 10/24/2017 showed extensive right-sided CVA. Neurology has been involved. He has left upper extremity flaccid with some limited left lower extremity movement. Neurology has been on board and he has been carefully anticoagulated. He has significant functional mobility and ADL deficits as well as cognitive communication and swallowing issues with dysphagia, on a pureed diet with honey thickened liquids. He has not been admitted for acute in-hospital inpatient rehabilitation. PAST MEDICAL HISTORY: Includes prior appendix surgery. MEDICATIONS: Please see the full medication listing. This list includes his prior vitamins, herbals and supplements. HABITS: Nonsmoker. Alcohol use on the weekends. FAMILY HISTORY: Mother had a CVA. ALLERGIES: No known drug allergies. SOCIAL HISTORY: Has been living in a trailer house alone, three steps in, did not utilize gait aids. Works in construction, [employer], and [employer]. He has a friend and he did stay in the friend's apartment on one floor. The friend works during the day. REVIEW OF SYSTEMS: No current complaints of chest pain, shortness of breath, or abdominal discomfort. PHYSICAL EXAMINATION: GENERAL: A 57-year-old male in no obvious distress. He has broken Iranian. He is able to follow basic commands without difficulty. VITAL SIGNS: Last recorded temperature 97.5, pulse 80, respirations 16, blood pressure 102/67. [facility] [address] [place] [address] HISTORY AND PHYSICAL Name: BARNEY ANDRADE Room #: 514-P [facility] IN ..#: [id number] Admission: 11/01/17 Attend Phys: Owen Carrillo MD Discharge: Date of : 58 Report #: [id number] NEUROLOGIC: He is alert. Follows basic 1 step commands. He does have some expressive aphasia, but can make his needs known. He has a definite left facial droop. EOMs appeared to be full. CHEST: Sounded clear to auscultation. CARDIAC EXAM: Sounded irregular. ABDOMEN: Bowel sounds positive, nontender. GENITOURINARY AND RECTAL: Deferred. EXTREMITIES: He has dense left upper extremity flaccid plegia. Right upper extremity revealed functional range of motion with good strength. Left lower extremity limited lower extremity movement. Left lower extremity strength is probably a grade 3- with decreased coordination. Decreased tone. He does have left-sided neglect with some hemianopsia. Some difficulty controlling oral secretions. Decreased position sense. He has decreased sitting balance. He has sat at the edge of the bed for 10 minutes. He is max assist. Verbal cues. He is mod assist to roll and sit on the edge of bed with OT. Will lean to the left. Does have some subluxation of the left shoulder. ASSESSMENT: A 57-year-old right-handed male with the following problem list: 1. Acute infarct, left medial temporal lobe. 2. Extensive acute right hemispheric cortical infarcts medial and lateral, right temporal lobe, lateral high, right frontal lobe, medial high right frontal lobe, suspected acute lacunar infarct right basal ganglia. 3. Left upper extremity plegia with left lower extremity paresis and some hemineglect. 4. Dysphagia, on pureed with honey thickened liquids. 5. Significant functional mobility, ADL and cognitive communication, swallowing issues. 6. Atrial fibrillation. He is on prophylaxis. 7. New congestive heart failure. Cardiology has been following. 8. Severe ETOH withdrawal shortly after admission, which has resolved. 9. Hematuria, resolved. Urology has been involved with unremarkable renal ultrasound. Urology is recommending outpatient followup and recommending repeat urinalysis once Haq is out. Their impression was that the hematuria is probably due to catheter trauma and anticoagulation. PLAN: From a post-admission physician evaluation, there are no relevant changes since the preadmission screening. Please see the above review of prior and current medical and functional conditions and comorbidities. The patient has been admitted for acute in-hospital inpatient rehabilitation. Please see the patient's previous and current functional status. As far as risk of complications, the patient does have the above noted list of medical comorbidities. Initial plan of care involves the interdisciplinary acute inpatient rehabilitation program with goal of maximizing the patient's functional independence, so that he can hopefully return back to his prior living situation. Measurable functional goals would be to improve his strength, [facility] [address] [place] [address] HISTORY AND PHYSICAL Name: BARNEY ANDRADE Room #: 514-P ADM IN M.R.#: [id number] Admission: 11/01/17 Attend Phys: Owen Carrillo MD Discharge: Date of : 58 Report #: [id number] endurance, balance, functional mobility and ADL independence, so he can return back to the home setting. Prognosis is reasonably good with estimated length of stay probably prolonged as he is at a lower functional level. Potential barriers would include his multiple medical comorbidities and decreased functional status. <ELECTRONICALLY SIGNED> By: Owen Carrillo MD 11/07/17 1510 0831 0855 Owen Carrillo MD /[facility]
[~2017-11-01 12:08] MED LIST: ALDACTONE25 MG PO; AMBIEN 5 MG TABL5 M1 PO; B-12500 MCG PO; CARDIZEM CD120 MG PO; CELEXA40 MG PO; HYDROCODON-ACE1 EAC7 PO; LIPITOR 20 MG T20 M1 PO; LOPRESSOR25 PER TUBE; NITROGLYCERIN0.4 MG SUBLING; PANTOPRAZOLE SO40 M1 PO; PRADAXA150 MG PO; VITAMIN B-1100 M2 PO
[2017-11-01 15:25] VITALS: BP 107/74
[2017-11-01 19:28] VITALS: BP 102/67
[2017-11-02 06:54] LABS: HEMATOCRIT 46.7 % (42.0-52.0); HEMOGLOBIN 15.7 gm/dL (14.0-18.0); MCH 30.4 pg (26.0-34.0); MCHC 33.7 g/dL (28.0-37.0); MCV 90.1 fL (80.0-100.0); RBC 5.18 mil/uL (4.50-6.00); RDW 13.8 % (10.5-14.5); WBC 9.5 thou/uL (4.0-11.0)
[2017-11-02 07:14] LABS: CALCIUM 9.1 mg/dL (8.5-10.1); CREATININE 1.1 mg/dL (0.7-1.3); POTASSIUM 3.9 mmol/L (3.5-5.1)
[2017-11-02 08:10] VITALS: BP 106/72
[2017-11-02 20:00] VITALS: BP 101/75; BP 122/75
[2017-11-02 23:32] LABS: URINE BILIRUBIN 2+ (Negative); URINE BLOOD 3+ (Negative); URINE CLARITY TURBID; URINE COLOR BROWN; URINE GLUCOSE-RANDOM* TRACE (Negative); URINE KETONES TRACE (Negative); URINE SPECIFIC GRAVITY <= 1.005 (1.005-1.035)
[2017-11-02 23:45] LABS: URINE LEUKOCYTES-REFLEX 3+ (Negative); URINE NITRITE-REFLEX POSITIVE (Negative)
[2017-11-02 23:47] LABS: ICTOTEST (BILI CONFIRMATORY) Positive (Negative)
[2017-11-02 23:48] LABS: CASTS None Seen /LPF (None Seen); MUCUS None Seen strn/LPF (None Seen); SQUAMOUS None Seen /LPF (0-3)
[2017-11-02 23:49] LABS: BACTERIA-REFLEX >30 Many /HPF (None Seen); TRIPLE PHOSPHATE CRYSTALS >10 Many /LPF (None Seen)
[2017-11-02 23:50] LABS: AMORPHOUS PHOSPHATES Many /LPF (None Seen)
[2017-11-03 08:30] VITALS: BP 106/82
[2017-11-03 20:34] VITALS: BP 104/78
[2017-11-04 08:00] VITALS: BP 104/60
[2017-11-04 13:30] VITALS: BP 135/75
[2017-11-04 19:29] VITALS: BP 110/63
[2017-11-05 09:00] VITALS: BP 121/90
[2017-11-05 20:07] VITALS: BP 101/74
[2017-11-06 06:08] LABS: ABSOLUTE NEUTROPHILS 5.3 thou/uL (1.4-8.2); BASOPHILS 0.3 % (0.0-2.0); EOSINOPHILS 2.5 % (0.0-3.0); HEMATOCRIT 46.4 % (42.0-52.0); HEMOGLOBIN 15.6 gm/dL (14.0-18.0); LYMPHOCYTES 25.1 % (24.0-44.0); MCH 30.4 pg (26.0-34.0); MCHC 33.7 g/dL (28.0-37.0); MCV 90.3 fL (80.0-100.0); MONOCYTES 7.9 % (1.0-8.0); PLATELET COUNT 208 thou/uL (150-400); POLYS 64.2 % (36.0-66.0); RBC 5.14 mil/uL (4.50-6.00); WBC 8.3 thou/uL (4.0-11.0)
[2017-11-06 06:19] LABS: CALCIUM 9.1 mg/dL (8.5-10.1); CREATININE 1.1 mg/dL (0.7-1.3); MAGNESIUM 2.2 mg/dL (1.8-2.4); POTASSIUM 4.4 mmol/L (3.5-5.1)
[2017-11-06 08:00] VITALS: BP 118/80
[2017-11-06 19:49] VITALS: BP 84/47
[2017-11-07 08:45] VITALS: BP 107/75
[2017-11-07 19:55] VITALS: BP 103/71
[2017-11-08 07:45] VITALS: BP 103/61
[2017-11-08 20:05] VITALS: BP 116/74
[2017-11-09 19:45] VITALS: BP 121/82
[2017-11-10 07:41] VITALS: BP 100/74
[2017-11-10 20:15] VITALS: BP 102/66
[2017-11-11 08:10] VITALS: BP 111/66
[2017-11-11 21:22] VITALS: BP 101/68
[2017-11-12 07:30] VITALS: BP 117/56
[2017-11-12 21:45] VITALS: BP 94/67
[2017-11-13 07:18] LABS: ABSOLUTE NEUTROPHILS 5.2 thou/uL (1.4-8.2); BASOPHILS 2.1 % (0.0-2.0); EOSINOPHILS 2.5 % (0.0-3.0); HEMATOCRIT 43.1 % (42.0-52.0); HEMOGLOBIN 14.6 gm/dL (14.0-18.0); LYMPHOCYTES 21.6 % (24.0-44.0); MCH 30.5 pg (26.0-34.0); MCHC 33.9 g/dL (28.0-37.0); MCV 89.8 fL (80.0-100.0); MONOCYTES 8.2 % (1.0-8.0); PLATELET COUNT 160 thou/uL (150-400); POLYS 65.6 % (36.0-66.0); RDW 13.9 % (10.5-14.5); WBC 7.9 thou/uL (4.0-11.0)
[2017-11-13 07:27] LABS: CALCIUM 8.8 mg/dL (8.5-10.1); POTASSIUM 4.3 mmol/L (3.5-5.1)
[2017-11-13 08:00] VITALS: BP 91/77
[2017-11-13 19:10] VITALS: BP 99/68
[2017-11-14 08:00] VITALS: BP 140/82
[2017-11-14 18:55] LABS: URINE BILIRUBIN NEGATIVE (Negative); URINE BLOOD TRACE (Negative); URINE CLARITY CLEAR; URINE COLOR YELLOW; URINE GLUCOSE-RANDOM* NEGATIVE (Negative); URINE KETONES NEGATIVE (Negative); URINE LEUKOCYTES-REFLEX NEGATIVE (Negative); URINE NITRITE-REFLEX NEGATIVE (Negative); URINE PROTEIN (DIPSTICK) NEGATIVE (Negative); URINE SPECIFIC GRAVITY >= 1.030 (1.005-1.035); URINE UROBILINOGEN 0.2 E.U./dl (0.2-1.0)
[2017-11-14 19:30] VITALS: BP 91/49
[2017-11-15 07:30] VITALS: BP 111/78
[2017-11-15 20:17] VITALS: BP 115/76
[2017-11-16 08:00] VITALS: BP 96/77
[2017-11-16 20:05] VITALS: BP 112/72
[2017-11-17 07:30] VITALS: BP 114/67
[2017-11-17 19:50] VITALS: BP 98/68
[2017-11-18 07:27] VITALS: BP 107/69
[2017-11-18 19:22] VITALS: BP 111/69
[2017-11-19 07:33] VITALS: BP 98/76
[2017-11-19 19:10] VITALS: BP 103/64
[2017-11-20 04:31] LABS: HEMATOCRIT 43.2 % (42.0-52.0); HEMOGLOBIN 14.6 gm/dL (14.0-18.0); MCH 30.5 pg (26.0-34.0); MCHC 33.9 g/dL (28.0-37.0); MCV 90.1 fL (80.0-100.0); PLATELET COUNT 140 thou/uL (150-400); RBC 4.79 mil/uL (4.50-6.00); RDW 13.8 % (10.5-14.5); WBC 5.1 thou/uL (4.0-11.0)
[2017-11-20 04:41] LABS: CALCIUM 8.9 mg/dL (8.5-10.1); POTASSIUM 4.1 mmol/L (3.5-5.1)
[2017-11-20 07:24] LABS: LARGE PLATELETS RARE
[2017-11-20 08:00] VITALS: BP 109/57
[2017-11-20 12:00] VITALS: BP 116/54
[2017-11-20 20:02] VITALS: BP 111/81
[2017-11-21 08:20] VITALS: BP 135/81
[2017-11-21 19:15] VITALS: BP 126/86
[2017-11-22 08:30] VITALS: BP 93/68
[2017-11-22 11:28] LABS: ABSOLUTE NEUTROPHILS 2.8 thou/uL (1.4-8.2); BASOPHILS 2.4 % (0.0-2.0); EOSINOPHILS 4.3 % (0.0-3.0); HEMATOCRIT 44.7 % (42.0-52.0); HEMOGLOBIN 15.1 gm/dL (14.0-18.0); LYMPHOCYTES 22.2 % (24.0-44.0); MCH 30.3 pg (26.0-34.0); MCHC 33.7 g/dL (28.0-37.0); MONOCYTES 11.6 % (1.0-8.0); PLATELET COUNT 148 thou/uL (150-400); POLYS 59.5 % (36.0-66.0); RBC 4.97 mil/uL (4.50-6.00); WBC 4.7 thou/uL (4.0-11.0)
[2017-11-22 20:50] VITALS: BP 100/43
[2017-11-23 07:40] VITALS: BP 121/73
[2017-11-23 19:47] VITALS: BP 101/64
[2017-11-24 05:41] LABS: ABSOLUTE NEUTROPHILS 2.1 thou/uL (1.4-8.2); EOSINOPHILS 5.5 % (0.0-3.0); HEMOGLOBIN 13.7 gm/dL (14.0-18.0); LYMPHOCYTES 40.7 % (24.0-44.0); MCHC 33.4 g/dL (28.0-37.0); MCV 89.6 fL (80.0-100.0); MONOCYTES 10.4 % (1.0-8.0); PLATELET COUNT 125 thou/uL (150-400); POLYS 41.4 % (36.0-66.0); RBC 4.58 mil/uL (4.50-6.00); RDW 14.1 % (10.5-14.5)
[2017-11-24 05:55] LABS: CALCIUM 8.9 mg/dL (8.5-10.1); CREATININE 1.1 mg/dL (0.7-1.3); MAGNESIUM 1.8 mg/dL (1.8-2.4); POTASSIUM 4.2 mmol/L (3.5-5.1)
[2017-11-24 07:18] VITALS: BP 107/42
[2017-11-24 17:30] VITALS: BP 121/84
[2017-11-25 07:30] VITALS: BP 110/78
[2017-11-25 09:00] VITALS: BP 111/71
[2017-11-25 14:31] VITALS: BP 111/71
[2017-11-25 20:00] VITALS: BP 87/46
[2017-11-26 07:40] VITALS: BP 119/70
[2017-11-26 19:59] VITALS: BP 100/69
[2017-11-27 07:57] VITALS: BP 113/84
[2017-11-27 19:20] VITALS: BP 106/71
[2017-11-28 04:58] LABS: BASOPHILS 1.2 % (0.0-2.0); EOSINOPHILS 3.3 % (0.0-3.0); HEMATOCRIT 42.3 % (42.0-52.0); HEMOGLOBIN 14.4 gm/dL (14.0-18.0); LYMPHOCYTES 32.3 % (24.0-44.0); MCH 30.3 pg (26.0-34.0); MCV 89.3 fL (80.0-100.0); MONOCYTES 8.2 % (1.0-8.0); PLATELET COUNT 147 thou/uL (150-400); RBC 4.74 mil/uL (4.50-6.00); RDW 13.9 % (10.5-14.5); WBC 7.3 thou/uL (4.0-11.0)
[2017-11-28 05:09] LABS: CALCIUM 9.3 mg/dL (8.5-10.1); CREATININE 1.3 mg/dL (0.7-1.3); POTASSIUM 4.4 mmol/L (3.5-5.1)
[2017-11-28 08:00] VITALS: BP 102/72
[2017-11-28 20:00] VITALS: BP 124/97
[2017-11-29 07:35] VITALS: BP 101/62
[2017-11-29 19:10] VITALS: BP 105/53
[2017-11-30 07:45] VITALS: BP 101/67
[2017-11-30] MEDS ORDERED: LOPRESSOR25 PER TUBE (12:54)
[2017-11-30] MEDS ORDERED: PRADAXA150 MG PO (12:54)
[2017-11-30] MEDS ORDERED: PANTOPRAZOLE SO40 M1 PO (12:54)
[2017-11-30] MEDS ORDERED: CARDIZEM CD120 MG PO (12:54)
[2017-11-30] MEDS ORDERED: LIPITOR 20 MG T20 M1 PO (12:54)
[2017-11-30] MEDS ORDERED: CLARITIN10 MG PO (12:54)
[2017-11-30] MEDS ORDERED: FLONASE 0.05%50 MCG NASAL (12:54)
[2017-11-30] MEDS ORDERED: B-12500 MCG PO (12:54)
[2017-11-30] MEDS ORDERED: ALDACTONE25 MG PO (12:54)
[2017-11-30] MEDS ORDERED: COLACE100 MG PO (12:54)
[2017-11-30] MEDS ORDERED: TYLENOL325 MG PO (12:54)
[2017-11-30] MEDS ORDERED: FLOMAX0.4 MG PO (12:54)
[2017-11-30 16:31] VITALS: BP 113/51
[2017-11-30 19:56] VITALS: BP 103/68
[2017-12-01 07:30] VITALS: BP 106/63
[2017-12-01 08:14] VITALS: BP 103/68
[2017-12-01] MEDS ORDERED: VENTOLIN HFA 1818 GM INH (08:56)
== END 2017-12-01 13:20 | disposition home health service (06) | DRG 56 ==
PROVIDERS: Family Medicine; Nurse Practitioner; Physical Medicine & Rehabilitation
DX: G81.94 Hemiplegia, unspecified affecting left nondominant side (principal); I63.9 Cerebral infarction, unspecified; F10.239 Alcohol dependence with withdrawal, unspecified; I42.0 Dilated cardiomyopathy; N39.0 Urinary tract infection, site not specified; I48.91 Unspecified atrial fibrillation; R13.10 Dysphagia, unspecified; I50.9 Heart failure, unspecified; Y90.9 Presence of alcohol in blood, level not specified; R31.9 Hematuria, unspecified; F01.50 Vascular dementia, unspecified severity, without behavioral disturbance, psychotic disturbance, mood disturbance, and anxiety; R26.9 Unspecified abnormalities of gait and mobility; E53.8 Deficiency of other specified B group vitamins; B96.4 Proteus (mirabilis) (morganii) as the cause of diseases classified elsewhere; R33.9 Retention of urine, unspecified; G83.9 Paralytic syndrome, unspecified; D69.6 Thrombocytopenia, unspecified; R05 Cough; Z90.49 Acquired absence of other specified parts of digestive tract; Z82.3 Family history of stroke
CPT/HCPCS: 10092; 10112